=== PATIENT | male | born 1990 | race African-American/Black ===

== ENCOUNTER → 2019-04-07 | Day surgery (SDC) | payer OTHER ==
--- NOTE | 2019-04-06 13:57 | Pre Op History & Physical ---
DATE OF SURGERY: April 07, 2019. CHIEF COMPLAINT: Recurrent tonsillitis, adenoiditis, and tonsillar adenoid hypertrophy. HISTORY OF PRESENT ILLNESS: This 28-year-old male has 2 to 4 episodes of tonsillitis a year for the past few years. The patient also has loud snoring and questionable apneic episode. The patient was hospitalized in [place] a few months ago because of chronic tonsillar adenoiditis. The patient's condition has been treated with multiple antibiotics, topical nasal steroid, decongestant with no improvement. The patient has loud snoring with no postnasal drip. Denies any apneic episodes. He claimed he is well rested in the morning. The patient denies any daytime somnolence. REVIEW OF SYSTEMS: System review showed no recent cardiovascular, respiratory, or GI problem. PAST MEDICAL HISTORY: The patient has a history of hypertension. PAST SURGICAL HISTORY: He has no previous surgery. SOCIAL HISTORY: He smokes about half a pack a day. He is a social drinker. ALLERGIES: HE IS ALLERGIC TO SULFA MEDICATION. MEDICATIONS: He is on atorvastatin, enalapril. FAMILY HISTORY: Noncontributory. PHYSICAL EXAMINATION: VITAL SIGNS: The patient's vital signs were within normal limits. HEENT: Ear exam showed normal tympanic membrane bilaterally. Nasal exam showed hypertrophy of the inferior turbinates. Oropharynx and oral cavity showed 3+ tonsils on the right side and 2+ on the left. He has Mallampati level 2. NECK: Showed no lymph node or thyroid palpable. CHEST: Showed good air entry bilaterally. CARDIOVASCULAR: Showing S1, S2. No murmur noted. ASSESSMENT AND PLAN: Mr. Dave has tonsillar adenoid hypertrophy, recurrent tonsillitis and adenoiditis which has been resistant to conservative therapy. Suggested treatment is tonsillectomy, possible adenoidectomy and other necessary procedure. Complication of procedure includes, but not limited to bleeding, infection, hyponasal speech, nasal regurgitation of food, airway distress, persistent recurrence of the sore throat and persistent recurrence of the sleep apnea. Alternatives will be continued observation, continue antibiotic therapy, topical nasal steroid therapy, systemic steroid therapy, decongestant. The patient has elected to undergo the surgical procedure. MD NICOLAS Zazueta/BERT /[id number]
[~2019-04-07] MED LIST: ACETAMINOPHEN 1000 MG/100 ML IV ONE; AFRIN30 ML; ATORVASTATIN CA40 MG PO; BUPIVACAINE 0.5%/EPI 30 ML SDV INJ ONE; DEXAMETHASONE SOD PHOS 10 MG/1 ML VIAL ONE; ENALAPRIL MALEA20 MG PO; FENTANYL CITRATE/PF 100MCG/2 ML INJ ONE; GLYCOPYRROLATE INJ 1MG/ 5 ML SYR ONE; HYDROMORPHONE 2MG/ML 2 MG/ML ML ONE; LIDOCAINE HCL 2% LOCAL INJ 5 ML SDV VIAL INJ ONE; MIDAZOLAM HCL 2 MG/2 ML VIAL ONE; NEOSTIGMINE 5 MG/5ML SYR ONE; ONDANSETRON HCL INJ 2MG/ML 2ML 2 MG/ML VIAL ONE; PROMETHAZINE HCL (IM) 25 MG/ML VIAL ONE; PROPOFOL IV EMULSION 10 MG/ML 20 ML VIAL ONE; ROCURONIUM BROMIDE 10 MG/ML 5ML VIAL ONE; SEVOFLURANE INHAL SOLN 250 ML PEN BTL ONE
[2019-04-07 14:00] VITALS: BP 121/69
--- NOTE | 2019-04-07 16:58 | Operative Report ---
DATE OF PROCEDURE: 04/07/2019 SURGEON: Jayme Henao MD CHIEF COMPLAINT: Chronic tonsillitis and tonsillar hypertrophy. POSTOPERATIVE DIAGNOSIS: Chronic tonsillitis and tonsillar hypertrophy. OPERATIVE PROCEDURE: Tonsillectomy. ANESTHESIA: Anesthesiology group. INDICATIONS: This 28-year-old male has three to four episodes of tonsillitis a year for past few years. The patient also has loud snoring, questionable apneic episodes. His condition has been treated with multiple antibiotics with no improvement. On examination, the patient was noted to have 3+ tonsils bilaterally. It was decided tonsillectomy and other necessary procedure will be beneficial for him. DESCRIPTION OF PROCEDURE: The patient was taken to operating room, put under general anesthesia, endotracheally intubated. The patient was put in Gaby position and McIvor mouth gag was inserted. Tonsillar fossas were injected with 0.5% Marcaine with 1:200,000 epinephrine. The right tonsil was retracted medially. A plane was created between the tonsil and tonsillar bed. Dissection was carried on the inferior pole and the tonsil was snared off. Similar procedure was carried on contralateral side. Hemostasis in tonsillar fossas was achieved using the suction cautery. Nasopharynx, oropharynx, and oral cavity were irrigated with copious amount of normal saline. The stomach was suctioned out at the end of procedure. The patient tolerated the above procedure well with an estimated blood loss about 30 mL. The patient was given 20 mg of Decadron intraoperatively. The patient was able to be transferred to recovery room in stable condition. Jayme Henao MD DK/MODL /[id number]
== END | disposition home or self-care (01) ==
LOC: OR 08:41
PROVIDERS: ATTEND Otolaryngology Otolaryngology/Facial Plastic Surgery
DX: J35.01 Chronic tonsillitis (principal); J34.3 Hypertrophy of nasal turbinates; R06.83 Snoring; I10 Essential (primary) hypertension; F17.210 Nicotine dependence, cigarettes, uncomplicated; Z88.2 Allergy status to sulfonamides
CPT/HCPCS: 42826; 88304; J0131; J1100; J1170; J2001; J2250; J2405; J2550; J2704; J3490